=== PATIENT | male | born 1945 | race Caucasian/White ===

== ENCOUNTER 2017-02-21 12:21 | Inpatient (IN) | payer OTHER ==
[~2017-02-21] VITALS: Ht 172.7 cm; Wt 72.6 kg
--- NOTE | 2017-02-21 12:29 | NUR ---
71 YO MALE TO ER C/O PAIN ACROSS THE BACK OF HIS NECK AND SHOULDERS. STATES HE USED TO GO FOR THERAPY FOR THIS PAIN BUT IT HASNT HAPPENED IN A AWHILE. STATES HE HAD A ?BRAETHING TEST DONE YESTERDAY AND THATS WHEN THE NECK PAIN STARTED. STATES ALSO HAS BEEN HAVING ALOT OF DIRRHEA. PT ALSO C/O LOWER ABD PAIN. PT HYPOTENSIVE IN TRIAGE 89/45
--- NOTE | 2017-02-21 12:52 | NUR ---
PT TO ROOM 8, PT REPORTING UPPER NECK AND R LATERAL NECK PAIN THAT WORSENED AFTER "DOING SOME HEAVY WORK" PT REPORTING A SIMILAR "ISSUE YEARS AGO THAT I RECIEVED PHYSICAL THERAPY FOR AND THIS FEELS THE SAME" PT ALSO REPORTING A THREE MONTH HX OF DIARRHEA, INTERMITTENT ABD PAIN AND GENERALIZED FATIGUE. PT REPORTING HE HAD A GI "TEST DONE YESTERDAY AND THEY GAVE ME THIS AWFUL SWEET STUFF TO DRINK AND NOW I FEEL ALL OFF BALANCE" PT REPORTING FEELING "OFF BALANCE" AND "NOT RIGHT" DIFFICULT EXPLAINING IN GREATER DETAIL SPECIFICS OF THOSE FEELINGS. PT DENIES ANY CP, SOB, LESLIE, PALPITATIONS. PLACED ON CARDIAC, 02 AND RESP MONITOR.
--- NOTE | 2017-02-21 13:30 | NUR ---
BLOOD DRAWN AND SENT TO LAB ([facility])
--- NOTE | 2017-02-21 13:36 | NUR ---
PT MEDICATED WITH TORADOL AND VALIUM PER ORDER FOR NECK PAIN
--- NOTE | 2017-02-21 13:37 | NUR ---
PT TO CT SCAN
[2017-02-21 13:52] LABS: ABSOLUTE BASOPHIL COUNT 0 /CUMM (0.0-0.2); ABSOLUTE EOSINOPHIL COUNT 0 /CUMM (0.0-0.7); ABSOLUTE GRANULOCYTE CT 15.1 /CUMM (1.4-6.5); ABSOLUTE LYMPH COUNT 0.7 /CUMM (1.2-3.4); ABSOLUTE MONOCYTE COUNT 0.9 /CUMM (0.10-0.60); BASOPHIL % 0.1 % (0.0-2.0); EOSINOPHIL % 0 % (0-5); GRANULOCYTE % 90.3 % (42.2-75.2); HEMATOCRIT 34.7 % (42-52); MEAN CORPUSCULAR HGB 31.5 PG (27.0-31.0); MEAN CORPUSCULAR HGB CONC 34.2 G/DL (33.0-37.0); MEAN CORPUSCULAR VOLUME 92.3 FL (80.0-94.0); MEAN PLATELET VOLUME 9.6 FL (7.4-10.4); PLATELET COUNT 169 /CUMM (130-400); RBC DISTRIBUTION WIDTH 13.4 % (11.5-14.5); RED BLOOD CELL CT 3.76 /CUMM (4.70-6.10); WHITE BLOOD CELL COUNT 16.7 /CUMM (4.8-10.8)
[2017-02-21] MEDS ORDERED: LISINOPRIL10 M1 PO (13:52)
[2017-02-21] MEDS ORDERED: METFORMIN HCL500 M3 PO (13:52)
[2017-02-21] MEDS ORDERED: TAMSULOSIN HCL0.4 M1 PO (13:53)
[2017-02-21] MEDS ORDERED: CRESTOR5 M1 PO (13:54)
[2017-02-21] MEDS ORDERED: FINASTERIDE5 M1 PO (13:54)
[2017-02-21] MEDS ORDERED: ASPIRIN81 M4 PO (13:55)
--- NOTE | 2017-02-21 14:23 | NUR ---
PT RESTING ON STRETCHER, BP 86/49 AT THIS TIME, DR SANCHEZ AT BEDSIDE TO DISCUSS PATIENTS LAB WORK WITH HIM.
--- NOTE | 2017-02-21 14:24 | CT SCAN REPORT ---
EXAMINATION: CT HEAD WITHOUT CONTRAST CT CERVICAL SPINE WITHOUT CONTRAST CLINICAL INFORMATION: Dizziness, headache. CVA. Recurrent neck pain. Assess for cervical stenosis. COMPARISON: None. TECHNIQUE: Multidetector CT imaging of the head and cervical spine was performed without the use of intravenous contrast. Coronal and sagittal reformatted images were generated at the technologist workstation. DLP: 983.5 to mGy-cm. FINDINGS: CT head: There is no evidence of acute intracranial hemorrhage or territorial infarction. No abnormal mass-effect or midline shift is seen. Wash[place] to white matter differentiation is well preserved. No extra-axial fluid collections are identified. The ventricles and sulci are slightly commensurately prominent consistent with mild diffuse volume loss. There is moderate low attenuation in the periventricular and subcortical white matter, consistent with chronic microvascular ischemic changes. There are relatively extensive atheromatous calcifications of the cavernous internal carotid and vertebral arteries bilaterally. The osseous structures and soft tissues are normal. The mastoid air cells and visualized portions of the paranasal sinuses are well-aerated. CT cervical spine: There is anatomic alignment of the vertebral bodies. There is mild narrowing of intervertebral disc height at C6-C7. There are multilevel marginal osteophytes between C3-C4 and C6-C7. Vertebral body heights are maintained and there are no compression fractures. Bone mineralization appears normal. Atlantooccipital alignment is maintained. The lateral masses of C1 and C2 are normally aligned and the dens is intact. The cervicomedullary junction and spinal cord are grossly unremarkable. There are extensive atheromatous calcifications of the carotid bifurcations) of the neck. The imaged lung apices are clear. SPINAL LEVELS: C2-C3: Disc contour is normal. There is no spinal cord compression or central stenosis. The neural foramina are patent. C3-C4: There is mild bilateral facet arthropathy. Posterior disc contour is normal. There are small uncovertebral osteophytes. There is no central stenosis or foraminal narrowing. C4-C5: There is mild right facet arthropathy. Posterior disc contour is normal. There are small uncovertebral osteophytes. There is no central stenosis or foraminal narrowing. C5-C6: There is moderate right facet arthropathy. There is a small posterior disc osteophyte complex and there are bilateral uncovertebral osteophytes. There is no central stenosis or foraminal narrowing. C6-C7: There is a posterior disc osteophyte complex. There is no spinal cord compression central stenosis. There are left greater than right uncovertebral osteophytes. There is mild left foraminal narrowing. C7-T1: Disc contour is normal. There is no spinal cord compression or central stenosis. The neural foramina are patent. IMPRESSION: 1. There are no acute bleeds or territorial infarcts. 2. There are changes consistent with diffuse volume loss and there are sequelae of chronic microvascular ischemic disease. 3. There are no fractures or subluxations in the cervical spine. 4. There are mild multilevel degenerative changes, most severe at C6-C7.
--- NOTE | 2017-02-21 14:30 | NUR ---
BUN 69 AND CREATNINE 4.1 , CLINICAL VETERINARIAN CALLING PTS PMD FOR OLD LABS SINCE PT HAS NOT HAD ANY RECENT LABS AT [facility]
--- NOTE | 2017-02-21 14:48 | NUR ---
PER DR SANCHEZ HE WOULD LIKE A URINE SENT OFF TO LAB AND THAT PT IS TO HAVE RENAL US. FS [phone]
--- NOTE | 2017-02-21 15:29 | NUR ---
ASSUMED CARE OF PT. DR SANCHEZ IN TO DISCUSS PLAN FOR ULTRASOUND. BLADDER SCAN PERFORMED AND PT HAS APPROX [id number] IN BLADDER WITH NO URGE TO VOID. GIVEN GINGERALE WITH PERMISSION OF LAURA IN ORDER FOR PT TO BE ABLE TO PROVIDE URINE SPECIMEN
--- NOTE | 2017-02-21 15:55 | ED NECK/BACK PAIN COMPLAINT ---
History of Present Illness General Chief Complaint: General Adult Stated Complaint: PAIN ACROSS MY NECK Source: patient, family, old records Exam Limitations: no limitations Vital Signs & Intake/Output Vital Signs & Intake/Output Vital Signs Date Time Temp Pulse Resp B/P B/P Pulse O2 O2 Flow FiO2 Mean Ox Delivery Rate 02/21 1804 61 18 108/50 96 Room Air 02/21 1737 92/54 02/21 1630 64 18 84/40 98 Room Air 02/21 1424 97.8 87 19 87/42 98 Room Air 02/21 1239 90 106/79 02/21 1225 98.4 91 18 89/45 97 Room Air Allergies Coded Allergies: acetaminophen (From PERCOCET) (NAUSEA 02/21/17) oxycodone (From PERCOCET) (NAUSEA 02/21/17) venom-honey bee (UNKNOWN 02/21/17) Reconcile Medications Aspirin (Aspirin*) 81 MG TAB.CHEW 1 TAB PO DAILY HEART HEALTH (Reported) Finasteride 5 MG TABLET 1 TAB PO DAILY PROSTATE (Reported) Lisinopril 10 MG TABLET 1 TAB PO QPM HEART (Reported) Metformin HCl 500 MG TABLET 2 TAB PO BID DIABETES (Reported) Rosuvastatin Calcium (Crestor) 5 MG TABLET 1 TAB PO DAILY CHOLESTEROL ( Reported) Tamsulosin HCl 0.4 MG CAP.ER.24H 1 CAP PO QPM PROSTATE (Reported) Triage Note: 71 YO MALE TO ER C/O PAIN ACROSS THE BACK OF HIS NECK AND SHOULDERS. STATES HE USED TO GO FOR THERAPY FOR THIS PAIN BUT IT HASNT HAPPENED IN A AWHILE. STATES HE HAD A ?BRAETHING TEST DONE YESTERDAY AND THATS WHEN THE NECK PAIN STARTED. STATES ALSO HAS BEEN HAVING ALOT OF DIRRHEA. PT ALSO C/O LOWER ABD PAIN. PT HYPOTENSIVE IN TRIAGE 89/45 Triage Nurses Notes Reviewed? yes Onset: yesterday Duration: day(s):, constant, continues in ED Timing: recent history Quality/Severity: moderate, severe Location: C-spine, paraspinous muscles Context: turning/bending Loss of Consciousness: no loss of consciousness Modifying Factors: immobilization, movement Associated Symptoms: muscle spasm HPI: 1 day prior to admission patient complains of upper back/neck pain described as sharp moderate to severe worse with turning bending constant nonradiating. 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 Denies fever chills nausea vomiting diarrhea abdominal pain chest pain shortness of breath dysuria rash bleeding. Past History Travel History Traveled to [place] past 21 day No Medical History Any Pertinent Medical History? 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 No Review of Systems Review of Systems Constitutional: Reports: see HPI, weakness. Eyes: Reports: see HPI, blurred vision. Ears, Nose, Throat, Mouth: Reports: no symptoms. Respiratory: Reports: no symptoms. Cardiovascular: Reports: no symptoms. Gastrointestinal/Abdominal: Reports: no symptoms. Musculoskeletal: Reports: see HPI, joint pain, neck pain. Skin: Reports: no symptoms. Neurological/Psychological: Reports: no symptoms. All Other Systems: Reviewed and Negative Physical Exam Physical Exam General Appearance: well developed/nourished, alert, awake, anxious, mild distress Head: atraumatic, normal appearance Eyes: Bilateral: normal appearance, PERRL, EOMI. Ears, Nose, Throat, Mouth: hearing grossly normal, dry mucous membranes Neck: normal inspection, supple, full range of motion, normal alignment, muscle spasm, paraspinous muscle tender, no midline tenderness Respiratory: normal breath sounds, chest non-tender, no respiratory distress, quiet respiration, lungs clear Cardiovascular: regular rate/rhythm, normal peripheral pulses, norml femoral pulses equa Peripheral Pulses: 4+ carotid (R), 4+ carotid (L) Gastrointestinal: normal bowel sounds, soft, non-tender, no organomegaly Back: normal inspection, normal range of motion, no vertebral tenderness Extremities: non-tender, normal range of motion Straight Leg Raising: Right: Negative. Left: Negative. Sensory: Medial Le: L4R, L4L. Top of Foot: 2: L5R, L5L. Sole of Foot: 2: SIR, LEIDA. Motor: Deficit L4 Right: No Deficit L4 Left: No Deficit L5 Right: No Deficit L5 Left: No Deficit S1 Right: No Deficit S1 Right: No DTR: Deficit L4 Left: No Deficit L4 Right: No Deficit S1 Left: No Deficit S1 Right: No Patellar: 3: L4 Right, L4 Left. Neurologic/Psych: no motor/sensory deficits, awake, alert, oriented x 3, normal mood/affect, merchandising lead II-XII nml as tested, + nystagmus Skin: intact, normal color, warm/dry Progress Differential Diagnosis: C spine injury, herniated disc, myofascial strain, pyelo /UTI Plan of Care: Orders Procedure Date/time Status Renal Dialysis Diet 02/21 D Active EKG 02/21 1751 Active OXYGEN SETUP (GEN) 02/21 1727 Active Saline Lock 02/21 1727 Active Admit to inpatient 02/21 1727 Active Vital Signs 02/21 1727 Active Activity/Ambulation 02/21 1727 Active Code Status 02/21 1727 Active Add-on Test (ER Only) 02/21 1721 Active BLOOD CULTURE 02/21 1721 Active CULTURE,URINE 02/21 1610 Active URINALYSIS 02/21 1455 Complete MAGNESIUM 02/21 1319 Complete COMPREHENSIVE METABOLIC PANEL 02/21 1319 Complete CBC WITHOUT DIFFERENTIAL 02/21 1319 Complete Current Medications Sig/Yari Start time Last Medication Dose Stop Time Status Admin Sodium Chloride 1,000 ML BOLUS ONE 02/21 1815 UNVr (Normal Saline 0.9%) 02/21 1914 Laboratory Tests 02/21/17 1610: Urine Color YEL, Urine Clarity HAZY H, Urine pH 5.5, Ur Specific [place] 1.025, Urine Protein TRACE H, Urine Ketones TRACE H, Urine Nitrite NEG, Urine Bilirubin NEG, Urine Urobilinogen 0.2, Ur Leukocyte Esterase MOD H, Ur Microscopic SEDIMENT EXAMINED, Urine WBC 15-25 H, Ur Epithelial Cells FEW, Urine Bacteria MANY H, Hyaline Casts 3-5 H, Urine Hemoglobin NEG, Urine Glucose NEG 02/21/17 1328: Anion Gap 13, Estimated GFR 14 L, BUN/Creatinine Ratio 17.3, Glucose 223 H, Calcium 8.7, Magnesium 1.8, Total Bilirubin 0.7, AST 15 L, ALT 34, Alkaline Phosphatase 42, Total Protein 6.1 L, Albumin 3.9, Globulin 2.2, Albumin/ Globulin Ratio 1.8, CBC w Diff MAN DIFF ORDERED, RBC 3.76 L, MCV 92.3, MCH 31.5 H, RDW 13.4, MPV 9.6, Gran % 90.3 H, Lymphocytes % 4.2 L, Monocytes % 5.4, Eosinophils % 0, Basophils % 0.1, Absolute Granulocytes 15.1 H, Absolute Lymphocytes 0.7 L, Absolute Monocytes 0.9 H, Absolute Eosinophils 0, Absolute Basophils 0, Platelet Estimate ADEQUATE, Normocytic RBCs VERIFIED, Normochromic RBCs VERIFIED, PUBS MCHC 34.2 Microbiology 02/21 1758 BLOOD: Blood Culture - RECD 02/21 1721 BLOOD: Blood Culture - ORD 02/21 1610 URINE ROUT: Urine Culture - RECD Diagnostic Imaging: Viewed by Me: CT Scan, Ultrasound. Discussed w/RAD: CT Scan, Ultrasound. Radiology Impression: 1. There are no acute bleeds or territorial infarcts. 2. There are changes consistent with diffuse volume loss and there are sequelae of chronic microvascular ischemic disease. 3. There are no fractures or subluxations in the cervical spine. 4. There are mild multilevel degenerative changes, most severe at C6-C7., Simple cyst lower pole left kidney unchanged. Prominent post void residual. Initial ED EKG: normal axis, normal intervals, normal p-waves, normal QRS complex, normal sinus rhythm, no ST T wave changes Prior EKG: unchanged Rhythm Strip: normal sinus rhythm Departure Departure Time of Disposition: 1629 Disposition: STILL A PATIENT Condition: Stable Clinical Impression Primary Impression: Acute renal failure Qualifiers: Acute renal failure type: unspecified Qualified Code: N17.9 - Acute kidney failure, unspecified Secondary Impressions: Cervical strain, acute Leukocytosis Qualifiers: Leukocytosis type: unspecified Qualified Code: D72.829 - Elevated white blood cell count, unspecified UTI (urinary tract infection) Qualifiers: Urinary tract infection type: site unspecified Hematuria presence: without hematuria Qualified Code: N39.0 - Urinary tract infection, site not specified Referrals: JENN AGOSTO MD (PCP/Family) Departure Forms: Customer Survey General Discharge Information Admission Note Spoke With: SERINA WHITTAKER MD Documentation of Exam: Documentation of any treatments & extenuating circumstances including Concerns Regarding Discharge (functional status, medication knowledge or non-compliance, living conditions, etc.) that warrant an admission rather than observation: Serial lab exam IV hydration IV antibiotics renal evaluation medication adjustment continuing care discharge planning Critical Care Note Critical Care Note Critical Care Time: 30-74 min (45)
--- NOTE | 2017-02-21 16:15 | ULTRASOUND REPORT ---
EXAMINATION: US RETROPERITONEAL COMPLETE (RENAL) CLINICAL INFORMATION: Acute renal failure.. COMPARISON: Renal ultrasound June 2011 TECHNIQUE: Real-time imaging of the kidneys and bladder. FINDINGS: RIGHT KIDNEY: 10.8 x 5.2 x 4.8 cm (SAG x AP x TRV). The kidney is normal in size, contour, and echogenicity. Renal cortical thickness is normal. No calculi or focal parenchymal lesions. No hydronephrosis. LEFT KIDNEY: 10.8 x 5.5 x 5.4 cm (SAG x AP x TRV). The kidney is normal in size, contour, and echogenicity. Renal cortical thickness is normal. There is a 1 cm cyst in the lower pole unchanged compared with the 2011 exam BLADDER: Well-distended and normal. Bilateral ureteral jets are demonstrated. Prevoid bladder volume is 285 mL. Postvoid bladder volume is 288 mL. Prostate prominent indenting on the posterior bladder wall similar to prior IMPRESSION: Simple cyst lower pole left kidney unchanged. Prominent post void residual.
--- NOTE | 2017-02-21 16:23 | NUR ---
URINE TRIO SENT TO LAB
--- NOTE | 2017-02-21 16:35 | NUR ---
DR SANCHEZ NOTIFIED OF CONTINUED LOW BLOOD PRESSURES. 2 LITERS OF NS BOLUS ORDERED. FIRST LITER STARTED
--- NOTE | 2017-02-21 17:40 | NUR ---
DR SANCHEZ IN TO DISCUSS TEST RESULTS AND PLAN TO ADMIT PT TO HOSPITAL
--- NOTE | 2017-02-21 18:02 | NUR ---
12 LEAD EKG DONE, FIRST SET BLOOD CULTURES DRAWN., EXTRA SST SENT TO LAB
--- NOTE | 2017-02-21 18:19 | NUR ---
SECOND SET OF BLOOD CULTURES DRAWN
--- NOTE | 2017-02-21 18:28 | NUR ---
ROCEPHIN GIVEN. PT EATING DINNER. FINGERSTICK CHECKED PRIOR TO EATING
--- NOTE | 2017-02-21 18:59 | NUR ---
THIRD LITER OF NS STARTED. LACTIC ACID LEVEL PENDING
--- NOTE | 2017-02-21 19:38 | NUR ---
DR GODDARD IN TO SEE PT
--- NOTE | 2017-02-21 20:15 | NUR ---
PT UP TO RESTROOM TO HAVE BM
--- NOTE | 2017-02-21 20:16 | History & Physical ---
PALAK SEPULVEDA,[facility] 02/21/17 2015: General Information and HPI MD Statement: I have seen and personally examined NAS SANTANA and documented this H&P. The patient is a 71 year old M who presented with a patient stated chief complaint of [neck pain and diarrhea]. Source of Information: patient, family Exam Limitations: no limitations History of Present Illness: 71-year-old male with past medical history of BPH, hypertension, diabetes, and HLD presenting with complaints of neck pain and diarrhea. The patient states that he has had diarrhea for the past 4-5 months he is followed up by his PCP and vessel builder for this. The diarreah was originally 3-4 bowel movements per day. The diarreah was originally thought to be due to metformin. His metformin was stopped but the diarreah continued. The patient then underwent extensive workup for the diarreah. He states the stool studies have been negative. He had a H. pylori breath test yesterday. His last diarrhea episode was yesterday and he states his diarreah episodes have been improved and decreasing in occurence. He has some abdominal pain due to gas. The patient states that recently his equilibrium has been off, and he has experienced blurry vision. He has states a dereased appetite in the past 48 hours. The patient denies any fever, chills, shortness of breath, edema, nausea or vomiting, bloody stool, urinary frequency or dysuria. The patient states his shoulder and neck pain is debilitating. It forces him to sit down when he is at work. He states it occurs up and down his neck and then radiates to his shoulders bilaterally. He received a cortisone injection 1 year ago, which has not helped his pain. He has also had physical therapy for this pain previously. The reason the patient decided to come into the ED today is because he was sent home from work after his boss was concerned about him being sick. Of note, the patient states that he has a very difficult time urinating if he does not take his tamsulosin. Allergies/Medications Allergies: Coded Allergies: acetaminophen (From PERCOCET) (NAUSEA 02/21/17) oxycodone (From PERCOCET) (NAUSEA 02/21/17) venom-honey bee (UNKNOWN 02/21/17) Home Med list Aspirin (Aspirin*) 81 MG TAB.CHEW 1 TAB PO DAILY HEART HEALTH (Reported) Finasteride 5 MG TABLET 1 TAB PO DAILY PROSTATE (Reported) Lisinopril 10 MG TABLET 1 TAB PO DAILY HEART (Reported) Metformin HCl 500 MG TABLET 2 TAB PO BID DIABETES (Reported) Rosuvastatin Calcium (Crestor) 5 MG TABLET 1 TAB PO DAILY CHOLESTEROL ( Reported) Tamsulosin HCl 0.4 MG CAP.ER.24H 1 CAP PO QPM PROSTATE (Reported) Past History Travel History Traveled to [place] past 21 day No Medical History Neurological: NONE EENT: NONE Cardiovascular: HTN, HLD Respiratory: NONE Gastrointestinal: NONE Hepatic: NONE Renal: benign prost hyperplasia, chronic kidney disease Musculoskeletal: NONE Psychiatric: NONE Endocrine: diabetes Blood Disorders: NONE Cancer(s): NONE MATERIAL RECLAIMER/Reproductive: NONE History of MRSA: No History of VRE: No History of CDIFF: No Surgical History Surgical History: L ankle surgery with steel plate, R knee replacement Past Family/Social History Psychosocial History Services at Home: None Smoking Status: Never Smoked ETOH Use: denies use Illicit Drug Use: denies illicit drug use Review of Systems Review of Systems Constitutional: Denies: chills, fever. Cardiovascular: Denies: chest pain. Respiratory: Denies: short of breath. GI: Reports: abdominal pain (due to gas). Denies: nausea, vomiting. Genitourinary: Denies: dysuria, frequency, hematuria. Exam & Diagnostic Data Last 24 Hrs of Vital Signs/I&O Vital Signs Date Time Temp Pulse Resp B/P B/P Pulse O2 O2 Flow FiO2 Mean Ox Delivery Rate 02/21 2223 98.1 88 20 138/62 98 Room Air 02/21 2157 97.8 65 18 133/60 96 Room Air 02/21 1937 78 20 112/50 02/21 1804 97.8 61 18 108/50 96 Room Air 02/21 1737 92/54 12 1630 64 18 84/40 98 Room Air 02/21 1424 97.8 87 19 87/42 98 Room Air 02/21 1239 90 106/79 02/21 1225 98.4 91 18 89/45 97 Room Air Intake & Output 02/21 1600 / 0800 07/12 0000 Intake Total 0 Output Total Balance 0 Intake, Oral 0 Patient 160 lb Weight Weight Reported by Patient Measurement Method Physical Exam General Appearance Alert, Oriented X3, Cooperative, No Acute Distress HEENT Atraumatic, PERRLA, EOMI, CN2-12 intact Neck Supple, no treacheal deviation, tenderness, lymphadenopathy Cardiovascular Regular Rate, Normal S1, Normal S2, No Murmurs Lungs Clear to Auscultation, Normal Air Movement Abdomen Normal Bowel Sounds, Soft, No Tenderness Neurological Normal Speech Extremities No Edema, Normal Pulses Diagnostic Data EKG Results Sinus rhythm QTC 413 Other Results RENAL U/S: IMPRESSION: Simple cyst lower pole left kidney unchanged. BLADDER: Well-distended and normal. Bilateral ureteral jets are demonstrated. Prevoid bladder volume is 285 mL. Postvoid bladder volume is 288 mL. Prostate prominent indenting on the posterior bladder wall similar to prior HEAD CT + Cervical spine: IMPRESSION: 1. There are no acute bleeds or territorial infarcts. 2. There are changes consistent with diffuse volume loss and there are sequelae of chronic microvascular ischemic disease. 3. There are no fractures or subluxations in the cervical spine. 4. There are mild multilevel degenerative changes, most severe at C6-C7. Assessment/Plan Assessment: 68-year-old male with past medical history of EtOH, hypertension, diabetes, hyperlipidemia, and HLD presenting with complaints of neck pain, diarrhea, change in his balance, and blurry vision found to have a positive UA and LIZBETH with a Cr of 4.1 and WBC of 16.7 most likely secondary to UTI. As Ranked By This Provider Problem List: 1. LIZBETH (acute kidney injury) Assessment/Plan The patient was found to be afebrile without any dysuria, changes in frequency or hematuria. His UA was + for leuk esterase. His BMP revaeled a Cr of 4.1 and BUN of 71. First lactic acid was 0.8. His baseline Cr. on prior records is around 1.0. His renal ultrasound revealed a simple cyst in the lower pole of the L kidney which has been unchanged from previous studies. There could be several causes of his LIZBETH. A pre-renal cause maybe his poor PO intake as stated by the patient. His balance issues and blurry vision may be secondary to reduced PO. A second cause of his possible LIZBETH may be UTI as his urine was + for leuk esterase. A third possible cause may be due to post-renal obstruction due to his BPH. Renal u/s showed prostate indenting on the posterior bladder wall. His Prevoid bladder volume was 285 mL and Postvoid bladder volume is 288 mL revealing difficulty urination. We will need a urology consult placed. We will get montgomery cultures to rule out sources of infection. We will being ceftriaxone to treat the UTI and order a urology consult. We will begin aggressive hydration. At this time, the patient was able to urinate with post void volumes in the 180s. If the patient has increased difficulty urinating, consider placing chapa. -f/u att note -f/u bmp, cbc -trend lactic acid -Ceftriaxone 1000 mg IV daily -NS@150ml/hr -f/u urology consult -f/u blood, urine cultures -serial post void bladder scans -consider chapa if pt has difficulty urinating 2. Urinary obstruction Assessment/Plan The patient has history of BPH and a renal u/s revealed prostate indenting on the posterior bladder wall. As stated above, his BPH may be a cause of his LIZBETH by causing post renal obstruction. At this time there is no hydronephrosos seen, making this a less likely cause of his LIZBETH. However, we need to contact urology in order to prevent the progression of his BPH worsening his LIZBETH. The patient states that he has difficulty voiding without his home medications, so we will resume his BPH medications.His Prevoid bladder volume was 285 mL and Postvoid bladder volume is 288 mL revealing difficulty urination.At this time, the patient was able to urinate with post void volumes in the 180s. If the patient has increased difficulty urinating, consider placing chapa. -f/u urology consult as stated above -Tamsulosin 0.4 mg by mouth -consider chapa placement as stated above 3. Diarrhea Assessment/Plan The patient states he has had diarreah chronically for the past 4-5 months with extensive work up revealing negative stool studies. He recently underwant a hydrogen breath test for H. pylori yesterday.He states his diarreah frequency has improved. Given his extensive workup, we will only order an o+p. We will give a courtesy call to Dr. Holder of GI, informing him of the patient. -f/u o+p -courtesy call to GI (Dr. Holder) 4. Neck pain Assessment/Plan The patient complains of neck pain which radiates up and down his cervical spine and then bilaterally into his shoulders. CT revealed multilevel degenerative changes, most severe at C6-C7. The patient states he has had a steroid injection last year without any improvement. He has also had Pt for this issue. His pain is most likely due to these degernative changes. Since this is a chronic issue which he has had f/u for, the patient should f/u with his outpatient providers regarding this issue and outpt PT. The AM team may give pain medications for management as they find approriate. -AM team, please consider pain medications -f/u outpatient management with PCP, consider further PT 5. Diabetes Assessment/Plan The patient has a history of diabetes. We will begin him on NovoLog sliding scale and Accu-Cheks. -continue novolog sliding scale 6. DVT prophylaxis Assessment/Plan Heparin 7. Full code status Assessment/Plan Full code Core Measures/Miscellaneous Acute Coronary Syndrome ACS Diagnosis: No Cerebrovascular Accident CVA/TIA Diagnosis: No Congestive Heart Failure CHF Diagnosis: No VTE (View Protocol) VTE Risk Factors: Acute medical illness, Age > 40 No Mech VTE prophylaxis d/t: No contraindications No VTE Pharm Prophylaxis d/t: No contraindications VTE Diagnosis: No VTE Type: NONE VTE Confirmed by (Test): NONE Sepsis (View Protocol) Severe Sepsis Present: No Septic Shock Septic Shock Present: No Miscellaneous Documentation Attending Case Discussed With: SERINA WHITTAKER MD Primary Care Physician: JENN AGOTSO MD Patient sees these Specialists GI Level of Patient Care: General Medicine MATILDE GASCA MD 02/21/17 7144: Resident Review Statement Resident Statement: examined this patient, discussed with international student advisor, agreed with international student advisor Other Findings: H: Mr Santana is a pleasant 71-year-old Gentleman with past medical history of DJD, diabetes type 2, hypertension, hyperlipidemia, osteoarthritis who presented to the emergency department complaining of worsening back and neck pain, blurred vision, weakness, and headache. On the morning of 02/21/2017, while the patient was at work patient experienced a 10 out of 10 bilateral upper extremity pain which got better with rest. Since he was not feeling well and he felt that his equilibrium was off he subsequently came to the emergency department after being prompted by his to come in for workup. He denied any sensory or motor weaknesses. He does have a history of chronic back pain and has seen Dr. Arellano in the past. Patient has previously had a cortisone shot which he states has not been helpful. Patient also endorses a 5 month history of diarrhea. So far extensive workup done by Dr. Holder are still pending. He recently went for a breath test in [place]. His initial stool studies have been negative. He states that over the last 48 hours prior to admission he has experienced decreased by mouth intake. R: Patient denied any fever, chills, edema, shortness breath, chest pain or chest discomfort. Denied any nausea or vomiting. E: E Temperature 98.4, pulse 91, respirations 18, blood pressure 89/45. Saturating 97% on room air. HEENT: extraocular motion intact, no nystagmus. Nose is atraumatic. External auditory canal and Tympanic membranes clear. Pharynx normal. No swelling or edema. Neck: Supple, no lymphadenopathy, normal range of motion without pain or tenderness Skin:WNL. No signs of Jaundice. Cardiovascular: Regular rate and rhythm no murmurs rubs or gallops. Respiratory: Chest nontender. No respiratory distress. Abdomen: Soft, nontender nondistended, no appreciable organomegaly. Normal bowel sounds. No ascites, no rebound or guarding. Extremity: No edema, no calf tenderness to palpation, normal and equal pulses. No crepitus or fluctuation. Neuro:AOX 3. CN 2 - 12 intact. L: Labs at the time of admission White cell count 16.7, H&H 9.9 34.7. Platelets 169. Sodium 136, potassium 5.0, BUN 71. Creatinine 4.1. BUN:CR Ratio: 17.1 Glucose 223. I: ; CT HEAD WO IV CONTRAST Head CT/Cervical Spine CT : IMPRESSION: There are no acute bleeds or territorial infarcts. There are changes consistent with diffuse volume loss and there are sequelae of chronic microvascular ischemic disease. There are no fractures or subluxations in the cervical spine.There are mild multilevel degenerative changes, most severe at C6-C7. SERVICE DATE: 02/21/17 EXAM TYPE: US - US-RENAL/KIDNEY IMPRESSION: Simple cyst lower pole left kidney unchanged. Prominent post void residual. A/P: Mr Santana is a pleasant 71-year-old Gentleman with past medical history of DJD, diabetes type 2, hypertension, hyperlipidemia, osteoarthritis who presented to the emergency department complaining of worsening back and neck pain, blurred vision, weakness, and headache. Vitals at the time of admission did show creatinine of 4.1 and a BUN of 71. BUN: Cr ratio: 17.31. Problem list Sepsis likely source UTI. Patient was positive for white blood cell count of 16.1 and a respiratory rate greater than 90. Chronic diarrhea History of neck pain History of diabetes Will admit the patient to general med. Trend lactic acid. Continue ceftriaxone 1000 gm daily. Aggressive hydration with normal saline 150 mL per hour. Chronic BPH may have predisposed LIZBETH. Urology consultation in a.m. Check post void residual volumes, if > 350, patient may benefit from chapa. Chronic Diarrhea seems to be getting better. Inform GI service of patient's admission to hospital. Stool studies in a.m. assess for Ova and Parasite. History of neck pain. Continue pain management as needed. May get records from Dr. Arellano if needed. History of BPH, continue tamsulosin. We had an extensive conversation about whether patient would benefit from a Chapa however multiple post void residuals have been below 200 mL. We will continued to monitor. If patientshow evidence of increased urinary retention may consider Chapa insertion. Given the patient history of diabetes we will hold off on metformin. Begin the patient on NovoLog sliding scale. Keep BS between 120-140. DVT prophylaxis heparin subcutaneous. Patient is a full code.
--- NOTE | 2017-02-21 20:55 | NUR ---
PT IS JOSÉ MIGUEL TO 230-1
--- NOTE | 2017-02-21 21:42 | NUR ---
REPORT CALLED TO INES ON [address]. SHE IS AWARE. PT IS ON 3RD LITER OF IVF AND TO START 4TH LITER AT 150 WHEN CURRENT ONE FINISHED. D
--- NOTE | 2017-02-21 21:59 | NUR ---
PT LEFT FOR GEN MED UNIT ROOM 230
--- NOTE | 2017-02-21 22:00 | NUR ---
PT ARRIVED TO FLOOR FROM ER. PT C/O PAIN IN NECK 11/20, PT STATES PAIN IS TOLERABLE AT THIS TIME. VSS. RA. PT INDEPENDENT FROM STRETCHER TO BED. SKIN CDI. PT ORIENTED TO ROOM AND EDUCATED MANAGER EQUITY LUIS.
[2017-02-21 22:23] VITALS: BP 138/62
[2017-02-22 06:00] VITALS: BP 124/58
--- NOTE | 2017-02-22 07:34 | PN- Housestaff ---
Subjective Follow-up For: LIZBETH, BPH, Chronic Diarrhea Subjective: Pt states he is having trouble voiding. Has difficulty initiating stream and has a weak flow. States he was on tamsulosin outpatient which helped. Pt denies abdominal pain, n/v, fever/chills, SOB or chest pain. Pt's states his vision has improved. Review of Systems Constitutional: Denies: see HPI. Cardiovascular: Denies: chest pain. Respiratory: Denies: cough, short of breath. Gastrointestinal: Reports: diarrhea (chronic). Genitourinary: Reports: see HPI. Objective Last 24 Hrs of Vital Signs/I&O Vital Signs Date Time Temp Pulse Resp B/P B/P Pulse O2 O2 Flow FiO2 Mean Ox Delivery Rate 02/23 0651 98.0 58 20 110/60 96 Room Air 02/22 2153 98.1 63 20 140/60 98 Room Air 02/22 1412 98.4 83 20 124/58 98 Intake & Output 02/23 1600 02/23 0800 02/23 0000 Intake Total Output Total 1000 800 Balance -1000 -800 Output, Urine 1000 800 Physical Exam General Appearance: Alert, Oriented X3, Cooperative HEENT: Atraumatic, PERRLA Cardiovascular: Regular Rate, Normal S1, Normal S2 Lungs: Clear to Auscultation Abdomen: Normal Bowel Sounds, Soft, No Tenderness Extremities: Normal Pulses Assessment/Plan Assessment: 68-year-old male with past medical history of EtOH, hypertension, diabetes, hyperlipidemia, and HLD presenting with complaints of neck pain, diarrhea, change in his balance, and blurry vision found to have a positive UA and LIZBETH with a Cr of 4.1 and WBC of 16.7 most likely secondary to UTI. Patient was admitted to the general medical floor for management of the followin. LIZBETH: Prerenal 2/2 to reduced PO intake, improving with IV hydration - pt came in afebrile, without symptoms of urinary tract infection, but does complain of symptoms of urinary retention and has had poor PO intake. - Cr: 4.1 --> 1.5 today (baseline 1.0) - UA: positive for leukocyte esterase - renal ultrasound: simple cyst in the lower pole of the L kidney unchanged from previous studies. - will continue to monitor BUN/Cr - will continue to do bladder scans due to difficulty initiating from BPH, will straight cath if bladder scan >300 or chapa if necessary -will tx UTI with ceftriaxone -f/u blood, urine cultures 2. Urinary obstruction 2/2 to BPH - h/o BPH on tamsulosin - renal u/s: prostate indenting on the posterior bladder wall. -f/u urology consult as stated above -Tamsulosin 0.4 mg by mouth -consider chapa placement as stated above 3. Chronic Diarrhea - past 4-5 months with extensive work up revealing negative stool studies. - has had a hydrogen breath test for H.pylori - diarrea frequency has improved - will follow up on o+p. 4. 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 The patient states he has had a steroid injection last year without any improvement - pain is most likely due to these degernative changes - should follow up outpatient for pain control with primary care provider and physical therapy - currently not on any pain regimen. 5. History of Diabetes We will begin him on NovoLog sliding scale and Accu-Cheks. -continue novolog sliding scale DVT PPx: Heparin Diet: Regular Code: Full code Problem List: 1. LIZBETH (acute kidney injury) 2. BPH (benign prostatic hyperplasia) 3. Diabetes 4. Neck pain 5. Diarrhea 6. UTI (urinary tract infection) 7. Urinary obstruction Pain Ratin Pain Location: neck pain Pain Goal: Pain 4 or less Pain Plan: currently not on any pain meds, will start with tylenol if needed, avoid NSAIDs due to LIZBETH Tomorrow's Labs & Rationales: cbc bep
--- NOTE | 2017-02-22 07:40 | NUR ---
WAS INSTRUCTED TO BLADDER SCAN PATIENT AFTER VOIDING. AT APPROX 2 AM MD MATILDE GASCA ORDERED A CLINTON TO BE INSERTED. I PAGED MD MATILDE GASCA AND SAID THAT THE PATIENT HAD VOIDED 300ML AND RESIDUAL WAS 185 ML, AND AGAIN VOIDED 250 ML AND RESIDUAL WAS 182ML. MD MATILDE GASCA INFORMED ME TO HOLD CLINTON AND TO PAGE HIM IF RESIDUAL WAS OVER 350 ML. PATIENT VOIDED AGAIN 300 ML AND HAD A RESIDUAL OF 262ML. PATIENTS RESIDUALS HAVE BEEN BELOW 350ML. MD MATILDE GASCA WAS PAGED AND NOTIFED. WILL CONTINUE TO MONITOR.
[2017-02-22 09:11] LABS: ABSOLUTE BASOPHIL COUNT 0 /CUMM (0.0-0.2); ABSOLUTE EOSINOPHIL COUNT 0.1 /CUMM (0.0-0.7); ABSOLUTE GRANULOCYTE CT 9.9 /CUMM (1.4-6.5); ABSOLUTE MONOCYTE COUNT 0.8 /CUMM (0.10-0.60); BASOPHIL % 0.3 % (0.0-2.0); EOSINOPHIL % 0.5 % (0-5); HEMATOCRIT 33.5 % (42-52); MEAN CORPUSCULAR HGB CONC 34.2 G/DL (33.0-37.0); MEAN CORPUSCULAR VOLUME 93.8 FL (80.0-94.0); MEAN PLATELET VOLUME 9.5 FL (7.4-10.4); PLATELET COUNT 163 /CUMM (130-400); RBC DISTRIBUTION WIDTH 13.4 % (11.5-14.5); RED BLOOD CELL CT 3.58 /CUMM (4.70-6.10); WHITE BLOOD CELL COUNT 11.8 /CUMM (4.8-10.8)
--- NOTE | 2017-02-22 12:52 | PN- Att Addend ---
See Addendum Attending Addendum Attending Brief Note Patient seen and examined, feels okay. He has diarrhea but that is a chronic issue. He claims that he has bowel movement once a day which ishe denies any abdominal pain. He did complain of some urinary symptoms and he wanted his Flomax to be initiated. Vital Signs Date Time Temp Pulse Resp B/P B/P Pulse O2 O2 Flow FiO2 Mean Ox Delivery Rate 02/22 0600 98.5 67 20 124/58 97 Room Air 02/21 2223 98.1 88 20 138/62 98 Room Air 02/21 2157 97.8 65 18 133/60 96 Room Air 02/21 1937 78 20 112/50 02/21 1804 97.8 61 18 108/50 96 Room Air 02/21 1737 92/54 02/21 1630 64 18 84/40 98 Room Air 02/21 1424 97.8 87 19 87/42 98 Room Air on exam; aox3, nad. cv; s1, s2, rrr resp; clear abd; soft, nt, bs+ ext; no edema. Laboratory Tests 02/22 02/21 02/21 0640 2250 1820 Chemistry Sodium (137 - 145 mmol/L) 142 Potassium (3.5 - 5.1 mmol/L) 4.4 Chloride (98 - 107 mmol/L) 110 H Carbon Dioxide (22 - 30 mmol/L) 20 L Anion Gap (5 - 16) 11 BUN (9 - 20 mg/dL) 44 H Creatinine (0.7 - 1.2 mg/dL) 1.6 H Estimated GFR (>60 ml/min) 43 L BUN/Creatinine Ratio (7 - 25 %) 27.5 H Lactic Acid (0.7 - 2.1 mmol/L) 0.9 0.8 Hematology CBC w Diff NO MAN DIFF REQ WBC (4.8 - 10.8 /CUMM) 11.8 H RBC (4.70 - 6.10 /CUMM) 3.58 L Hgb (14.0 - 18.0 G/DL) 11.5 L Hct (42 - 52 %) 33.5 L MCV (80.0 - 94.0 FL) 93.8 MCH (27.0 - 31.0 PG) 32.0 H RDW (11.5 - 14.5 %) 13.4 Plt Count (130 - 400 /CUMM) 163 MPV (7.4 - 10.4 FL) 9.5 Gran % (42.2 - 75.2 %) 84.0 H Lymphocytes % (20.5 - 51.1 %) 8.8 L Monocytes % (1.7 - 9.3 %) 6.4 Eosinophils % (0 - 5 %) 0.5 Basophils % (0.0 - 2.0 %) 0.3 Absolute Granulocytes (1.4 - 6.5 /CUMM) 9.9 H Absolute Lymphocytes (1.2 - 3.4 /CUMM) 1.0 L Absolute Monocytes (0.10 - 0.60 /CUMM) 0.8 H Absolute Eosinophils (0.0 - 0.7 /CUMM) 0.1 Absolute Basophils (0.0 - 0.2 /CUMM) 0 PUBS MCHC (33.0 - 37.0 G/DL) 34.2 02/21 02/21 1610 1610 Urines Urine Color (YEL,AMB,STR) YEL Urine Clarity (CLEAR) HAZY H Urine pH (5.0 - 8.0) 5.5 Ur Specific [place] (1.001 - 1.035) 1.025 Urine Protein (NEG,<30 MG/DL) TRACE H Urine Ketones (NEG) TRACE H Urine Nitrite (NEG) NEG Urine Bilirubin (NEG) NEG Urine Urobilinogen (0.1 - 1.0 EU/dl) 0.2 Ur Leukocyte Esterase (NEG) MOD H Ur Microscopic SEDIMENT EXAMINED Urine WBC (0 - 2 /HPF) 15-25 H Ur Epithelial Cells (NONE,FEW) FEW Urine Bacteria (NEG/NONE) MANY H Hyaline Casts (0/LPF) 3-5 H Urine Hemoglobin (NEG) NEG Ur Random Creatinine (mg/dL) 269.9 Ur Random Sodium (30 - 90 mmol/L) 44 Ur Random Potassium (mmol/L) 42.8 Fraction Sodium Excret (<1% %) 0.5 Urine Glucose (N MG/DL) NEG 02/21 1328 Chemistry Sodium (137 - 145 mmol/L) 136 L Potassium (3.5 - 5.1 mmol/L) 5.0 Chloride (98 - 107 mmol/L) 104 Carbon Dioxide (22 - 30 mmol/L) 18 L Anion Gap (5 - 16) 13 BUN (9 - 20 mg/dL) 71 H Creatinine (0.7 - 1.2 mg/dL) 4.1 H Estimated GFR (>60 ml/min) 14 L BUN/Creatinine Ratio (7 - 25 %) 17.3 Glucose (65 - 99 mg/dL) 223 H Hemoglobin A1c (4.2 - 5.8 %) 6.9 H Calcium (8.4 - 10.2 mg/dL) 8.7 Magnesium (1.6 - 2.3 mg/dL) 1.8 Total Bilirubin (0.2 - 1.3 mg/dL) 0.7 AST (17 - 59 U/L) 15 L ALT (21 - 72 U/L) 34 Alkaline Phosphatase (< 127 U/L) 42 Total Protein (6.3 - 8.2 g/dL) 6.1 L Albumin (3.5 - 5.0 g/dL) 3.9 Globulin (1.9 - 4.2 gm/dL) 2.2 Albumin/Globulin Ratio (1.1 - 2.2 %) 1.8 Hematology CBC w Diff MAN DIFF ORDERED WBC (4.8 - 10.8 /CUMM) 16.7 H RBC (4.70 - 6.10 /CUMM) 3.76 L Hgb (14.0 - 18.0 G/DL) 11.9 L Hct (42 - 52 %) 34.7 L MCV (80.0 - 94.0 FL) 92.3 MCH (27.0 - 31.0 PG) 31.5 H RDW (11.5 - 14.5 %) 13.4 Plt Count (130 - 400 /CUMM) 169 MPV (7.4 - 10.4 FL) 9.6 Gran % (42.2 - 75.2 %) 90.3 H Lymphocytes % (20.5 - 51.1 %) 4.2 L Monocytes % (1.7 - 9.3 %) 5.4 Eosinophils % (0 - 5 %) 0 Basophils % (0.0 - 2.0 %) 0.1 Absolute Granulocytes (1.4 - 6.5 /CUMM) 15.1 H Absolute Lymphocytes (1.2 - 3.4 /CUMM) 0.7 L Absolute Monocytes (0.10 - 0.60 /CUMM) 0.9 H Absolute Eosinophils (0.0 - 0.7 /CUMM) 0 Absolute Basophils (0.0 - 0.2 /CUMM) 0 Platelet Estimate (ADEQUATE) ADEQUATE Normocytic RBCs VERIFIED Normochromic RBCs VERIFIED PUBS MCHC (33.0 - 37.0 G/DL) 34.2 A/P; 71-year-old male with past medical history significant for hypertension, diabetes, hyperlipidemia, chronic diarrhea who is admitted with acute renal failure likely secondary to prerenal azotemia and dehydration. Patient was hypotensive initially but blood pressure improved after IV hydration. Patient also has a possible urinary tract infection. Continue IV fluids 1 more bag. We will restart the Flomax. Patient was started on ceftriaxone. His leukocytosis has improved. We can continue the Plavix for now and follow-up on cultures. Urinalysis was not completely negative. Urine cx is growing gram-negative rods. We will follow-up on the final sensitivities. DVT prophylaxis: Heparin subcutaneous. Possible discharge tomorrow if creatinine improves. Pt encouraged to ambulate.
[2017-02-22 14:12] VITALS: BP 124/58
--- NOTE | 2017-02-22 14:46 | NUR ---
PATIENT BLADDER SCAN 141, NO DISTESS NOTED, VOIDING WITH ZERO ISSUES.
--- NOTE | 2017-02-22 15:28 | PN- Student ---
Subjective Subjective: HPI: Patient is a 71 y-o male with history of BPH, HTN, DM, HLD is on his hospitalization day #1, after being admitted due to LIZBETH, blury vision and continous watery diarrhea. Patients states having blurry vision and problems with equilibrium since sunday. He states that the symptoms come and go, feeling weak on work, no trauma related, no syncope or dizziness. Yesterday he presented at work and the manager mobility told him to go to the hospital because he looked really sick and weak. Patient has never been passed out and he explains that he use to have a good hydration at home and work. The watery diarrhea started since October,, 3-4 BM per day, no blood in stools. He was prescribed antidiarrhea medication since then, but patient was not compliant because he thought that he could develop constipation. He still experiencing the diarrhea, liquid and mucus in character. He had 3 BM last night and one today, loose, watery with no blood. Patient had a Colonoscopy and EGD in October, with no acute findings, he was prescribed with antacid medication but he stopped them because it results worsening the diarrhea. No abdominal pain associated, no fevers, no vomits, nauseas, bloated symptoms, night sweats or diaphoresis. Patient tried a new lactose free diet at January 2017 that improved his symptoms but not completly. Patient states that neck pain started one year ago, radiates to the shoulders bilaterally and it could be 10/10 when worst. He was followed up with an Orthopedic, who gave him steroids injection and PT what he states that PT helped him. No sensation loss in upper extremities, no weakness, no tingling sensation and no change in fingers movements. Patient has problems with urination since 6 years ago when he was diagnosed with BPH and was prescribed Tamsulosin. He has had problems starting the urination, felt pressure on his bladder and felt like a blockage. All those symptoms were relieved with Tamsulosin. Today patient present with no symptoms of urination, except for a little trouble starting. His last dose of Tamsulosin was on Sunday. No burning sensation, no blood in urine, no discomfort in genital area and no change in color of urine. Patient states discomfort in suprapubic region today. Current Medications Sig/Yari Start time Last Medication Dose Route Stop Time Status Admin Aspirin 81 MG DAILY 02/22 1000 AC 02/22 PO 1013 Atorvastatin Calcium 5 MG 1700 02/22 1700 CAN PO Ceftriaxone Sodium 1,000 MG DAILY 02/22 1000 AC 02/22 IV 1014 Ceftriaxone Sodium 0 .STK-MED ONE 02/21 1812 DC .ROUTE Ceftriaxone Sodium 1,000 MG ONCE ONE 02/21 1730 DC 07/12 IV 02/21 1731 1826 Finasteride 5 MG DAILY 02/22 1000 CAN PO Heparin Sodium 5,000 UNIT Q8 02/21 2200 AC 02/22 (Porcine) SC 1458 Insulin Aspart 0 AT BEDTIME 02/22 2200 AC SC Insulin Aspart 0 TIDAC 02/22 0800 AC 02/22 SC 1202 Patient Medication 1 ED .STK-MED ONE 02/22 1404 DC Teaching ED 02/22 1405 Sodium Chloride 1,000 ML ONCE ONE 02/21 2130 DC / IV 02/22 0409 2247 Sodium Chloride 1,000 ML BOLUS ONE 02/21 1815 DC IV 02/21 1914 Sodium Chloride 1,000 ML BOLUS ONE 02/21 1815 DC / IV 02/21 2014 1859 Sodium Chloride 1,000 ML BOLUS ONE 02/21 1630 DC 07/12 IV 02/21 1729 1636 Sodium Chloride 1,000 ML BOLUS ONE 02/21 1630 DC / IV 02/21 1729 1802 Tamsulosin HCl 0.4 MG QPM 02/22 2200 AC PO PMH: HLD, HTN, DM-2 (2006), BPH (2010), "Mild Case Kidney Disease" (September 2016). Psychiatry History: Denies PSH: L Ankle Repair (2008), R Knee Replacement (2012) Allergies: Bee Sting (Hives) Alcohol and Substance use: Alcohol: He was heavy drinker when young and last 4 years, then he just use to drink couple glasses of wine in a week, he quit on September 2016 after being diagnosed with a Kidney Disease. Smoke: 40 years pack, the last 15 years he smoked on pipes. Patient quits 20 years ago. Illicit Drugs: Denies FMH: Dad due to heart disease at 47 years old. Mom at 88 years old due to a Stroke. Uncle due to Lung Cancer. Sister was diagnosed with DM Type 1 when we was 9 years old. Social: Patient lives in [place] with his and son of 20 years old. They have 7 kids, 5 of them were adopted, and 10 grandkids. 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 Patient use to not exercise regularly and does not follow any diet. Review of Systems Constitutional: Denies: chills, fever, malaise Reports: weigth loss, weakness Cardiovascular: Denies: chest pain, palpitations. Respiratory: Denies: hemoptysis, SOB, orthopnea Gastrointestinal: Denies: abdominal pain, vomits, hematochezia or hematemesis Reports: chronic diarrhea Genitourinary: Denies: hematuria, dysuria, color or odor changes. Reports: Trouble starting urination Musculoskeletal: Reports: shoulder and neck pain Skin: Reports: bug bite weeks ago in R foot. Denies: abrasion, bruises, rashes, itchiness, dryness Objective Objective: Last 24 hours Vital Signs and I&O: Vital Signs Date Time Temp Pulse Resp B/P B/P Pulse O2 O2 Flow FiO2 Mean Ox Delivery Rate 02/22 1412 98.4 83 20 124/58 98 02/22 0600 98.5 67 20 124/58 97 Room Air 02/21 2223 98.1 88 20 138/62 98 Room Air 02/21 2157 97.8 65 18 133/60 96 Room Air 02/21 1937 78 20 112/50 02/21 1804 97.8 61 18 108/50 96 Room Air 02/21 1737 92/54 Intake & Output 02/22 1600 02/22 0800 02/22 0000 Intake Total 500 3330 Output Total 1100 1100 600 Balance -600 -1100 2730 Intake, IV 3150 Intake, Oral 500 180 Output, Urine 1100 1100 600 Patient 160 lb Weight Weight Reported by Patient Measurement Method Physical Exam General Appearance: Aware, Alert and Oriented X3, Cooperative, NAD Skin: No Rashes, No Breakdown, No dryness, No skin discoloration or jaundice HEENT: Atraumatic, no tender under palpation of scalp and neck. EOMI, PERRL, No jaudice noted on eyes, no conjunctival pallor Cardiovascular: Normal JVD, Normal chest shape, Pulse: RRR, Normal S1 and S2 heard, No Murmurs or additional sounds. Lungs: Clear to Auscultation Bilaterally, No additional sounds, Normal Air Movement Abdomen: Normal shape, protruded, distended, no bruises, mass or change in color. Hyperactive BS+. Hyperresonance to percussion. Tender to palpation in suprapubic region, no masses felt and no intraperitoneal organ enlargement. Extremities: No edema, abrasion, color change or ulcers in any extremity. Limited ROM in R arm. Difficulties and painfull external rotation in right arm. Pulses palpable X4. Neurological: Congruent speech, CN intact II-XII, Sensroy intact in extremities x4, motor strength intact, Normal posture and gait with no disbalance. Results Results: Laboratory Tests 02/22/17 0640: Anion Gap 11, Estimated GFR 43 L, BUN/Creatinine Ratio 27.5 H, CBC w Diff NO MAN DIFF REQ, RBC 3.58 L, MCV 93.8, MCH 32.0 H, RDW 13.4, MPV 9.5, Gran % 84.0 H, Lymphocytes % 8.8 L, Monocytes % 6.4, Eosinophils % 0.5, Basophils % 0.3, Absolute Granulocytes 9.9 H, Absolute Lymphocytes 1.0 L, Absolute Monocytes 0.8 H, Absolute Eosinophils 0.1, Absolute Basophils 0, PUBS MCHC 34.2 02/21/17 2250: Lactic Acid 0.9 02/21/17 1820: Lactic Acid 0.8 02/21/17 1610: Urine Color YEL, Urine Clarity HAZY H, Urine pH 5.5, Ur Specific [place] 1.025, Urine Protein TRACE H, Urine Ketones TRACE H, Urine Nitrite NEG, Urine Bilirubin NEG, Urine Urobilinogen 0.2, Ur Leukocyte Esterase MOD H, Ur Microscopic SEDIMENT EXAMINED, Urine WBC 15-25 H, Ur Epithelial Cells FEW, Urine Bacteria MANY H, Hyaline Casts 3-5 H, Urine Hemoglobin NEG, Urine Glucose NEG 02/21/17 1610: Ur Random Creatinine 269.9, Ur Random Sodium 44, Ur Random Potassium 42.8, Fraction Sodium Excret 0.5 02/21/17 1328: Anion Gap 13, Estimated GFR 14 L, BUN/Creatinine Ratio 17.3, Glucose 223 H, Hemoglobin A1c 6.9 H, Calcium 8.7, Magnesium 1.8, Total Bilirubin 0.7, AST 15 L, ALT 34, Alkaline Phosphatase 42, Total Protein 6.1 L, Albumin 3.9, Globulin 2.2, Albumin/Globulin Ratio 1.8, CBC w Diff MAN DIFF ORDERED, RBC 3.76 L, MCV 92.3, MCH 31.5 H, RDW 13.4, MPV 9.6, Gran % 90.3 H, Lymphocytes % 4.2 L, Monocytes % 5.4, Eosinophils % 0, Basophils % 0.1, Absolute Granulocytes 15.1 H , Absolute Lymphocytes 0.7 L, Absolute Monocytes 0.9 H, Absolute Eosinophils 0 , Absolute Basophils 0, Platelet Estimate ADEQUATE, Normocytic RBCs VERIFIED, Normochromic RBCs VERIFIED, PUBS MCHC 34.2 Microbiology 02/22 0500 STOOL: Cryptosporidium Antigen - Negative 02/22 0500 STOOL: Giardia Antigen (BRISEYDA) - Negative 02/21 1815 BLOOD: Blood Culture - RES 02/21 1758 BLOOD: Blood Culture - RES 02/21 1610 URINE ROUT: Urine Culture - RES GRAM NEGATIVE RODS Diagnostic Data: US-RENAL/KIDNEY 02/21/17 16:05 IMPRESSION: Simple cyst lower pole left kidney unchanged. Prominent post void residual. BY: NARESH SANABRIA MD CT CERV SPINE WO IV CONTRAST; CT HEAD WO IV CONTRAST 02/21/17 14:24 IMPRESSION: 1. There are no acute bleeds or territorial infarcts. 2. There are changes consistent with diffuse volume loss and there are sequelae of chronic microvascular ischemic disease. 3. There are no fractures or subluxations in the cervical spine. 4. There are mild multilevel degenerative changes, most severe at C6-C7. SIGNED BY: LANDRY MEDLEY MD Assessment/Plan Assessment: Assesment: A 71 y-o male with history of BPH, HTN, DM, HLD is on his hospitalization day #1, after being admitted due to LIZBETH, blury vision and continous watery diarrhea. Patient still presenting diarrheas and trouble starting voiding. Patient has an improvement in his kidney function levels, creatinine and BUN are trending down, 4.1 to 1.6 and 71 to 44 respectively after being treated with IVF. Patient improved his numbers of WBC, 16.7 to 11.8 after being treated with Ceftriaxone due to a Complicated UTI. Urine Culture reflect Gram negative Rods. Stool cultures for O&P and Giardia were negative as blood culture was negative as well. Problem List: 1. LIZBETH 2. UTI 3. Chronic Diarrhea 4. Neck and Shoulder Pain 5. BPH 6. DM-2 1. Pre-Renal Acute Kidney Injury: A: Patient most likely has an LIZBETH due to possible dehydration due to bad hydration habits or prolonged history of watery diarrhea. He presents with Hyaline Cast in UA, Blood pressure of 108/50 on admission, a FENA: 0.5%, BUN/ Creatinine Ratio: 27.5, Urine Na: 44. This reflects a Pre-Renal LIZBETH. Also, this could be confirmed after an improvement in renal funtion and BP (124/58) with IVF. Creatinine: 1.4 and BUN: 44 after being in 4.1 and 71 respectively. Pre- Renal LIZBETH could be a manifestation of any possiblity that decrease the Renal prefusion, like Sepsis, Heart Failure, Hypovolemia. In this case could be related to hypovolemia because it was restored and improved after IVF infusion. B: Plan: Keep IVF. Watch Chemistry and UA daily. 2. UTI A. Patient presents with no symptoms of UTI, like burning sensation, fevers or chills. Otherwise, patient reports an Urine culture positive to Gram Negative Rods, leukocytosis (WBC: 16.7) and positive urine leukocyte esterase on admission. Also, patient improved WBC: 11.8 after being treated with Ceftriaxone. This UTI should be treated as complicated UTI because of his gender (male). B: Plan: Keep Ceftriaxone 1000mg for 7-10 days or until culture sensitivity came back. Watch Vital Signs Q8H for any fevers. 3. Chronic Diarrhea: A. Patient is experiencing a Chronic Diarrhea with no known etiology. Stool sample for Cryptosporidium and Giardia were negative. A Colonoscopy and EGD were performed as outpatient in November 2016 with no acute findings. Patient reports having an appointment with his Roll Carrier in a couple of weeks, he states having a Breath Test that will be read it in that appointment. B: Plan: F/U as outpatient with his Roll Carrier. 4. Neck and Shoulders Pain A. Patient is experiencing neck pain radiating to shoulders with no associated complications or nerve damage. This pain copuld be related to degenerative changes showed in C6-C7 on Cervical Spinal CT scan. B: F/U with physical therapy since he tried before and worked. 5. BPH: A. Patient has a history of BPH with difficult voiding, he is well treated with Tamsulosin. B. Keep Tamsulosin 0.4mg QPM. 6. DM-2 A: Patient has a history of DM-2 since 2006. B. Keep Insulin Aspart At Bed time SC and Insulin Aspart TIDAC SC
[2017-02-22 21:53] VITALS: BP 140/60
--- NOTE | 2017-02-22 23:38 | NUR ---
BLADDER SCANNED AT THIS TIME, POST VOID RESIDUAL 330. CALL TO SPEECH AND LANGUAGE TUTOR. AWAITING CALL BACK
--- NOTE | 2017-02-23 03:35 | Event Note ---
Event Note Event Note: S: 23.45. Informed by the nurse bladder scan showed patient had 575 mL of urine. After voiding he still had 330 mL of urine. B: Patient was admitted yesterday has a history of BPH and since admission has not been able to completely void. A/R: No your urology recommendations have been made. Hence we made the decision to place [place] to avoid any urinary retention and possible competitions. Updat: 1:59 AM. [place] draining well. Bladder scan 0. [place] bag 600 mL of urine.
[2017-02-23 06:51] VITALS: BP 110/60
[2017-02-23 08:20] LABS: ABSOLUTE BASOPHIL COUNT 0 /CUMM (0.0-0.2); ABSOLUTE EOSINOPHIL COUNT 0.2 /CUMM (0.0-0.7); ABSOLUTE GRANULOCYTE CT 6.4 /CUMM (1.4-6.5); ABSOLUTE LYMPH COUNT 1.2 /CUMM (1.2-3.4); ABSOLUTE MONOCYTE COUNT 0.6 /CUMM (0.10-0.60); BASOPHIL % 0.4 % (0.0-2.0); EOSINOPHIL % 2.3 % (0-5); GRANULOCYTE % 75.5 % (42.2-75.2); HEMATOCRIT 36.8 % (42-52); MEAN CORPUSCULAR HGB 32.1 PG (27.0-31.0); MEAN CORPUSCULAR HGB CONC 34.2 G/DL (33.0-37.0); MEAN CORPUSCULAR VOLUME 93.9 FL (80.0-94.0); MEAN PLATELET VOLUME 9.1 FL (7.4-10.4); PLATELET COUNT 193 /CUMM (130-400); RBC DISTRIBUTION WIDTH 13.2 % (11.5-14.5); RED BLOOD CELL CT 3.92 /CUMM (4.70-6.10); WHITE BLOOD CELL COUNT 8.4 /CUMM (4.8-10.8)
--- NOTE | 2017-02-23 08:46 | PN- Housestaff ---
JOSE ROBERTO SEPULVEDA,MOR 02/23/17 0845: Subjective Follow-up For: LIZBETH, BPH, Chronic Diarrhea Subjective: Pt is doing well today. Required chapa catheter overnight due to urinary retention. 600 mL came out. Pt states he feels much better today. Denies abdominal pain, chest pain, SOB, fever, chills, n/v/c/d. Review of Systems Constitutional: Denies: see HPI. Objective Last 24 Hrs of Vital Signs/I&O Vital Signs Date Time Temp Pulse Resp B/P B/P Pulse O2 O2 Flow FiO2 Mean Ox Delivery Rate 02/23 0651 98.0 58 20 110/60 96 Room Air 02/22 2153 98.1 63 20 140/60 98 Room Air Intake & Output 02/23 1600 02/23 0800 02/23 0000 Intake Total Output Total 1000 800 Balance -1000 -800 Output, Urine 1000 800 Physical Exam General Appearance: Alert, Oriented X3, Cooperative, No Acute Distress Cardiovascular: Regular Rate, Normal S1, Normal S2 Lungs: Clear to Auscultation Abdomen: Normal Bowel Sounds, Soft, No Tenderness Extremities: Normal Pulses Other Physical Findings: chapa in place draining clear yellow urine Assessment/Plan Assessment: 68-year-old male with past medical history of EtOH, hypertension, diabetes, hyperlipidemia, and HLD presenting with complaints of neck pain, diarrhea, change in his balance, and blurry vision found to have a positive UA and LIZBETH with a Cr of 4.1 and WBC of 16.7 most likely secondary to UTI. Patient was admitted to the general medical floor for management of the followin. LIZBETH: Prerenal 2/2 to reduced PO intake, improving with IV hydration - pt came in afebrile, without symptoms of urinary tract infection, but does complain of symptoms of urinary retention and has had poor PO intake. - Cr: 4.1 --> 1.5 --> 1.0 (baseline 1.0) - UA: positive for leukocyte esterase - renal ultrasound: simple cyst in the lower pole of the L kidney unchanged from previous studies. - will continue to monitor BUN/Cr - will continue to do bladder scans due to difficulty initiating from BPH, will straight cath if bladder scan >300 or chapa if necessary - urine culture positive for pansensitive e.coli -will discharge today and give patient 5 more days of keflex to complete a 7 day course of antibiotics for complicated UTI. 2. Urinary obstruction 2/2 to BPH - h/o BPH on tamsulosin - renal u/s: prostate indenting on the posterior bladder wall. -f/u urology consult as stated above -Tamsulosin 0.4 mg by mouth -chapa placed, urology consulted - as per urology, pt can be discharged with chapa and will follow up with urology as outpatient 3. Chronic Diarrhea - past 4-5 months with extensive work up revealing negative stool studies. - has had a hydrogen breath test for H.pylori - diarrea frequency has improved 4. 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 The patient states he has had a steroid injection last year without any improvement - pain is most likely due to these degernative changes - should follow up outpatient for pain control with primary care provider and physical therapy - currently not on any pain regimen. 5. History of Diabetes We will begin him on NovoLog sliding scale and Accu-Cheks. -continue novolog sliding scale DVT PPx: Heparin Diet: Regular Code: Full code Dispo: discharge home today Problem List: 1. UTI (urinary tract infection) 2. Acute renal failure 3. BPH (benign prostatic hyperplasia) 4. Diarrhea 5. Neck pain Pain Ratin Pain Location: neck pain Pain Goal: Pain 4 or less Pain Plan: pain meds PRN Tomorrow's Labs & Rationales: none AMY GIPSON MD 02/23/17 1104: Attending MD Review Statement Attending Statement Attending MD Statement: examined this patient, discuss w/resident/PA/AMMUNITION OFFICER, agreed w/resident/PA/AMMUNITION OFFICER, reviewed EMR data (avail), discussed with nursing, discussed with case mgmt, reviewed images, amended to note Attending Assessment/Plan: Patient seen and examined, feels ok. Overnight he developed urinary retention therefore required a Chapa catheter placement. This morning 40s draining clear urine. Urology was called, Dr. Munoz. She recommended keeping the Chapa in for now and having patient follow up with her as an outpatient. Pt was also started on Flomax. No further diarrhea. VSS> on exam: aox3 nad. cv; s1,s2 rrr resp; clear abd; soft, nt, bs+ ext; no edema. Laboratory Tests 02/23 0720 Chemistry Sodium (137 - 145 mmol/L) 140 Potassium (3.5 - 5.1 mmol/L) 4.7 Chloride (98 - 107 mmol/L) 107 Carbon Dioxide (22 - 30 mmol/L) 23 Anion Gap (5 - 16) 10 BUN (9 - 20 mg/dL) 26 H Creatinine (0.7 - 1.2 mg/dL) 1.0 Estimated GFR (>60 ml/min) > 60 BUN/Creatinine Ratio (7 - 25 %) 26.0 H Hematology CBC w Diff NO MAN DIFF REQ WBC (4.8 - 10.8 /CUMM) 8.4 RBC (4.70 - 6.10 /CUMM) 3.92 L Hgb (14.0 - 18.0 G/DL) 12.6 L Hct (42 - 52 %) 36.8 L MCV (80.0 - 94.0 FL) 93.9 MCH (27.0 - 31.0 PG) 32.1 H RDW (11.5 - 14.5 %) 13.2 Plt Count (130 - 400 /CUMM) 193 MPV (7.4 - 10.4 FL) 9.1 Gran % (42.2 - 75.2 %) 75.5 H Lymphocytes % (20.5 - 51.1 %) 14.7 L Monocytes % (1.7 - 9.3 %) 7.1 Eosinophils % (0 - 5 %) 2.3 Basophils % (0.0 - 2.0 %) 0.4 Absolute Granulocytes (1.4 - 6.5 /CUMM) 6.4 Absolute Lymphocytes (1.2 - 3.4 /CUMM) 1.2 Absolute Monocytes (0.10 - 0.60 /CUMM) 0.6 Absolute Eosinophils (0.0 - 0.7 /CUMM) 0.2 Absolute Basophils (0.0 - 0.2 /CUMM) 0 PUBS MCHC (33.0 - 37.0 G/DL) 34.2 A/P; 71-year-old male with past medical history significant for hypertension, diabetes, hyperlipidemia, chronic diarrhea who is admitted with acute renal failure likely secondary to prerenal azotemia and dehydration, UTI and urinary retention. Creatinine improved and back to normal. Patient was started on IV ceftriaxone, urine culture results came back and he is growing Escherichia coli which is pansensitive. We'll switch to oral Keflex for total of 7 days. Chapa catheter was inserted yesterday secondary to patient developing urinary retention and unable to completely empty the bladder. Urology was contacted and Dr. Munoz recommended keeping the Chapa in and outpatient follow-up. Patient is requesting a work note which she will be given. Medically stable for discharge him today with outpatient follow-up with Stepan Sheffield MD as well as well as Dr. Munoz
[2017-02-23] MEDS ORDERED: KEFLEX500 M1 PO ×3 (11:07→11:53)
--- NOTE | 2017-02-23 11:16 | Patient Discharge Instructions ---
Discharge Instructions General Discharge Information You were seen/treated for: Acute Renal Failure Urinary Tract Infection BPH You had these procedures: Chapa catheter placement Watch for these problems: 1. Pain with urination, blood in your urine 2. Fever or chills. 3. Abdominal pain 4. Change in the color and consistency of urine. Special Instructions: 1. Follow up with your primary care provider in 1 week 2. Follow up with Dr. Munoz (Urology) in 1 week for the chapa catheter 3. Complete the full regimen of antibiotics 4. If symptoms worsen or do not improve call your primary care provider or come back to the ED Diet Continue normal diet: Yes Activity Full Activity/No Limits: No Activity Self Limited: Yes Acute Coronary Syndrome Inclusion Criteria At DC or during hospital stay patient has or had the following: ACS DIAGNOSIS No Discharge Core Measures Meds if any: Prescribed or Continued at Discharge Meds if any: NOT Prescribed or Continued at Discharge Congestive Heart Failure Inclusion Criteria At DC or during hospital stay patient has or had the following: CHF DIAGNOSIS No Discharge Core Measures Meds if any: Prescribed or Continued at Discharge Meds if any: NOT Prescribed or Continued at Discharge Cerebrovascular accident Inclusion Criteria At DC or during hospital stay patient has or had the following: CVA/TIA Diagnosis No Discharge Core Measures Meds if any: Prescribed or Continued at Discharge Meds if any: NOT Prescribed or Continued at Discharge Venous thromboembolism Inclusion Criteria VTE Diagnosis No VTE Type NONE Discharge Core Measures - Per Current guidelines, there needs to be overlap - treatment for the first 5 days of Warfarin therapy. - If discharged on Warfarin prior to 5 days of - overlap therapy, the patient will need to be - assessed for post discharge needs including - *Post discharge parental anticoagulation - *Warfarin and/or parental anticoagulation education - *Follow up date to check INR post discharge At least 5 days overlap therapy as Inpatient No Meds if any: Prescribed or Continued at Discharge Note: Overlap Therapy is Warfarin and Anticoagulant Meds if any: NOT Prescribed or Continued at Discharge
--- NOTE | 2017-02-23 11:57 | PN- Student ---
Subjective Subjective: S: Patient is a 71 y-o male with history of BPH, HTN, DM and HLD is on his hospitalization day #2, after being admitted due to LIZBETH, blury vision and continous watery diarrhea. Last nignt, patient presented with voiding problems and a bladder scan showed 575ml pre-void and 330ml post-void. A chapa was placed and 600ml was drained. This morning patient states feeling better, no abdominal distention, felt releived after chapa was placed. Last BM was yesterday morning and none today. No fevers, pain, hematuria, burning sensation in uretra or any other associated symptoms. Patient is worried about his work, he need to be back at sunday and is worried about the chapa placed. Current Medications Sig/Yari Start time Last Medication Dose Route Stop Time Status Admin Aspirin 81 MG DAILY 02/22 1000 AC 02/23 PO 1038 Ceftriaxone Sodium 1,000 MG DAILY 02/22 1000 AC 02/23 IV 1038 Heparin Sodium 5,000 UNIT Q8 02/21 2200 AC 02/23 (Porcine) SC 0552 Insulin Aspart 0 AT BEDTIME 02/22 2200 AC SC Insulin Aspart 0 TIDAC 02/22 0800 AC 02/23 SC 0848 Patient Medication 1 ED .STK-MED ONE 02/22 1404 AR Teaching ED 02/22 1405 Tamsulosin HCl 0.4 MG QPM 02/22 2200 AC 02/22 PO 2133 Review of Systems Constitutional: Denies: chills, fever, malaise Cardiovascular: Denies: chest pain, palpitations. Respiratory: Denies: hemoptysis, SOB, orthopnea Gastrointestinal: Denies: abdominal pain, vomits, hematochezia or hematemesis Reports: chronic diarrhea Genitourinary: Denies: hematuria, dysuria, color changes. Reports: Tropuble starting urination, releived now with chapa. Musculoskeletal: Reports: shoulder and neck pain improved. Skin: Reports: bug bite weeks ago in R foot. Denies: abrasion, bruises, rashes, itchiness, dryness Objective Objective: Last 24 hours Vital Signs and I&O: Vital Signs Date Time Temp Pulse Resp B/P B/P Pulse O2 O2 Flow FiO2 Mean Ox Delivery Rate 02/23 0651 98.0 58 20 110/60 96 Room Air 07/13 2153 98.1 63 20 140/60 98 Room Air 02/22 1412 98.4 83 20 124/58 98 Intake & Output 02/23 1600 02/23 0800 02/23 0000 Intake Total Output Total 1000 800 Balance -1000 -800 Output, Urine 1000 800 Physical Exam General Appearance: Aware, Alert and Oriented X3, Cooperative, NAD Skin: No Rashes, No Breakdown, No dryness, No skin discoloration or jaundice HEENT: Atraumatic, no tender under palpation of scalp and neck. EOMI, PERRL, No jaudice noted on eyes, no conjunctival pallor Cardiovascular: Normal JVD, Normal chest shape, Pulse: RRR, Normal S1 and S2 heard, No Murmurs or additional sounds. Lungs: Clear to Auscultation Bilaterally, Normal Air Movement Abdomen: Normal shape, protruded, distended, no bruises, mass or change in color. Hyperactive BS+. Hyperresonance to percussion. Soft abdomen, no tender to palpation or masses felt. Extremities: No edema, abrasion, color change or ulcers in any extremity. Limited ROM in R arm. Difficulties and painfull external rotation in right arm. Pulses palpable X4. Neurological: Congruent speech, CN intact II-XII, Sensroy intact in extremities x4, motor strength intact, normal posture. Results Results: Laboratory Tests 02/23/17 0720: Anion Gap 10, Estimated GFR > 60, BUN/Creatinine Ratio 26.0 H, CBC w Diff NO MAN DIFF REQ, RBC 3.92 L, MCV 93.9, MCH 32.1 H, RDW 13.2, MPV 9.1, Gran % 75.5 H, Lymphocytes % 14.7 L, Monocytes % 7.1, Eosinophils % 2.3, Basophils % 0.4, Absolute Granulocytes 6.4, Absolute Lymphocytes 1.2, Absolute Monocytes 0.6, Absolute Eosinophils 0.2, Absolute Basophils 0, PUBS MCHC 34.2 Diagnostic Data: URINE CULTURE Final 02/23/17-10:25 Greater than 100,000 colonies per ml of: ESCHERICHIA COLI 1. ESCHERICHIA COLI RX AB ------ -- AMPICILLIN S CEFAZOLIN S AMOXICILLIN/CLAVULINIC ACID S AMPICILLIN/SULBACTAM S CIPROFLOXACIN S GENTAMICIN S NITROFURANTOIN S TRIMETHOPRIM/SULFAMETHOXAZOLE S Assessment/Plan Assessment: Assesment: A 71 y-o male with history of BPH, HTN, DM, HLD is on his hospitalization day #2, after being admitted due to LIZBETH, blury vision and continous watery diarrhea. Patient has continous improvement in his kidney function levels, creatinine and BUN are trending down, 1.6 to 1.0 and 44 to 26 respectively after being treated with IVF. Patient had serious problem to void and urinary catheter was placed and 600ml was drained. Patient has an improve numbers of WBC, 11.8 to 8.4 after being treated with Ceftriaxone due to possitive culture Gram Negative Rods UTI. Antimicrobial susceptibility testing shows an E. coli susceptible to Cefazolin, Ampicillin, Amoxicillin/Clavulinic acid, Ampicilllin/Sulbactam, Ciprofloxacin, Gentamycin, Nitrofurantoin and TMP- SMX. Stool cultures for O&P and Giardia were negative as blood culture was negative as well. Problem List: 1. LIZBETH: 2. UTI 3. Urinary Retention 4. Chronic Diarrhea 5. Neck and Shoulders Pain 6. DM-2 1. LIZBETH: A: Patient most likely has an LIZBETH due to possible dehydration due to bad hydration habits or prolonged history of watery diarrhea. He presents with Hyaline Cast in UA, Blood pressure of 108/50 on admission, a FENA: 0.5%,Bun/ Creat Ratio: 27.5, Urine Na: 44. This results in Pre-Renal LIZBETH. Also, this could be confirmed after an improvement in renal funtion with IVF and BP. Creatinine: 1.0 and BUN: 26.0 after being in 4.1 and 71 respectively. Pre- Renal LIZBETH could be a manifestation of any possiblity that decrease the Renal prefusion, like Sepsis, Heart Failure, Hypovolemia. In this case could be related to hypovolemia because it was restored and improved after IVF infusion. B: Plan: Hold IVF as electrolyte improved. Possible plan to discharge. Encourage patient to maintain a good hydration at home. 2. UTI A. Patient presents with no symptoms of UTI, like burning sensation, fevers or chills. Otherwise, patient reports an Urine culture positive to Gram Negative Rods, leukocytosis (16.7) and positive urine leukocyte esterase on admission. Also, patient improved WBC: 8.4 after being treated with Ceftriaxone. The antimicrobial susceptibility testing shows an E. coli susceptible to Cefazolin, Ampicillin, Amoxicillin/Clavulinic acid, Ampicilllin/Sulbactam, Ciprofloxacin, Gentamycin, Nitrofurantoin and TMP-SMX. This UTI should be treated as complicated UTI because of his gender (male). B: Plan: Change IV antibiotic to Cephalexin 500mg BID PO for 7 days and F/U with Urologist as outpatient. 3. Urinary Retention: A. Patient experienced a severe urinary retention after had a bladder scan and shows 575ml pre-void and 330ml post-void, a chapa was placed and 600ml was drained. A consult with Dr. Munoz was placed and she states that the patient can be discharge with chapa in-place and schedule a follow up with her as outpatient in one week. A history of BPH confirm this diagnosis and make the enlarge prostate the most likely etiology of his urinary retention. B. Keep chapa placed, continue with Tamsulosin 0.4mg QPM PO, watch urine output [id number] during hospital stay and teach patient how to drain bag at home. 4. Chronic Diarrhea: A. Patient is expereiencing a Chronic Diarrhea with no known etiology. Stool sample for Cryptosporidium and Giardia were negative. A Colonoscopy and EGD were performed as outpatient in November 2016 with no acute findings. Patient reports having an appointment with his Dry Dip Worker in a couple of weeks, he states having a Breath Test that will be read it in that appointment. B: Plan: F/U as outpatient with his Dry Dip Worker. 5. Neck and Shoulders Pain A. Patient is experiencing neck pain radiating to shoulders with no associated complications or nerve damage. This pain copuld be related to degenerative changes in C6-C7 showed on Cervical Spinal CT scan. B: F/U with physical therapy since he tried before and it worked. 6. DM-2 A: Patient has a history of DM-2 since 2006. B. Keep Insulin Aspart At Bed time SC and Insulin Aspart TIDAC SC.
--- NOTE | 2017-02-23 13:15 | Discharge Summary ---
Hospital Course Allergies: Coded Allergies: acetaminophen (From PERCOCET) (NAUSEA 02/21/17) oxycodone (From PERCOCET) (NAUSEA 02/21/17) venom-honey bee (UNKNOWN 02/21/17) Discharge Instructions Medications at Discharge Discharge Medications: Continue taking these medications: Metformin HCl (Metformin HCl) 500 MG TABLET 2 Tablet ORAL TWICE DAILY Qty = 360 Comments: NOT GIVEN WHILE IN HOSPITAL Lisinopril (Lisinopril) 10 MG TABLET 1 Tablet ORAL DAILY Qty = 90 Comments: NOT GIVEN WHILE IN HOSPITAL Tamsulosin HCl (Tamsulosin HCl) 0.4 MG CAP.ER.24H 1 Capsule ORAL Every night Qty = 90 Comments: Last Taken: 02/22/17 Time: 10PM Rosuvastatin Calcium (Crestor) 5 MG TABLET 1 Tablet ORAL DAILY Qty = 30 Comments: NOT GIVEN WHILE IN HOSPITAL Finasteride (Finasteride) 5 MG TABLET 1 Tablet ORAL DAILY Qty = 90 Comments: NOT GIVEN WHILE IN HOSPITAL Aspirin (Aspirin*) 81 MG TAB.CHEW 1 Tablet ORAL DAILY Comments: Last Taken: 02/23/17 Time: 9AM Start taking the following new medications: Cephalexin (Keflex) 500 MG CAPSULE 1 Capsule ORAL 4 TIMES A DAY Qty = 20 No Refills Comments: NOT GIVEN WHILE IN HOSPITAL
== END 2017-02-23 12:21 | DRG 683 ==
LOC: ERH 12:21 → ERHI 17:27 → 2NA 17:27 → ENRESERV 20:46 → ENTRNSPT 21:44 → CMPTRNSPT 22:05 → 2NA 22:19 → ENPENDDIS 02-23 11:44 → 2NA 02-23 12:21
PROVIDERS: Emergency Medicine; Student in an Organized Health Care Education/Training Program; ADMIT Internal Medicine
DX: N17.9 Acute kidney failure, unspecified (principal); N39.0 Urinary tract infection, site not specified; E11.9 Type 2 diabetes mellitus without complications; N13.8 Other obstructive and reflux uropathy; I10 Essential (primary) hypertension; B96.20 Unspecified Escherichia coli [E. coli] as the cause of diseases classified elsewhere; E86.0 Dehydration; M47.812 Spondylosis without myelopathy or radiculopathy, cervical region; E78.5 Hyperlipidemia, unspecified; M19.90 Unspecified osteoarthritis, unspecified site; N40.1 Benign prostatic hyperplasia with lower urinary tract symptoms; Z96.651 Presence of right artificial knee joint
CPT/HCPCS: 2NASP; 84133; 84300; 76775; 81001; 82436; 82570; 87040; 87086; 87328; 87329; 93005; 93010; 96361; 96374; 96375; 99291; J0696; J1644; J1885; J3360; J3490